=== PATIENT | male | born 1960 | race Caucasian/White ===

== ENCOUNTER 2017-02-06 19:30 | Outpatient (CLI) | payer OTHER ==
--- OUTSIDE RECORDS SUMMARY | 2017-02-07 09:00 | XMS | Clinical Summary ---
:1960 Author Organization [facility] Address [address] [place] [address] Phone Care Team Providers Name Role Phone Shagufta Richards Primary Care Provider tel Allergies Active Allergy Reactions Severity Noted Date Comments Penicillins High 07/16/2016 Sulfa (Sulfonamide Antibiotics) High 07/16/2016 Current Medications Prescription Sig. Disp. Refills Start Date End Date Status EFFIENT 10 mg tablet Take 1 tablet by 2016 Active mouth daily. aspirin (ECOTRIN) 81 MG Take 81 mg by mouth Active enteric coated tablet daily. pitavastatin (LIVALO) 1 Take 1 mg by mouth Active mg tablet daily. Active Problems Problem Noted Date Well adult exam 10/27/2016 Prostate cancer screening 10/27/2016 Chronic fatigue 10/27/2016 Coronary artery disease involving [place] coronary artery of [place] heart 10/27 without angina pectoris Hypotestosteronemia 10/27/2016 Obstructive sleep apnea 10/27/2016 Skin lesions 10/27/2016 Epidermal inclusion cyst 10/27/2016 Acute low back pain 07/16/2016 Presence of stent in artery 07/16/2016 Mixed hyperlipidemia 07/16/2016 Paresthesia of right foot 07/16/2016 Encounters Date Type Specialty Care Team Description 02/03/2017 Lab Lab Shagufta Richards Mixed hyperlipidemia;Chronic MD Claudia fatigue;Paresthesia of right foot;Coronary artery disease involving [place] coronary artery of [place] heart without angina pectoris;Prostate cancer screening;Hypotestosteronemia 02/03/2017 Office Visit Sports Shagufta Worrell Hypotestosteronemia (Primary MD Claudia Dx);Mixed hyperlipidemia;Prostate cancer screening;Chronic fatigue;Paresthesia of right foot;Coronary artery disease involving [place] coronary artery of [place] heart without angina pectoris;Dizziness 11/18/2016 Office Visit Sports Shagufta Worrell Well adult exam ( Primary Dx) MD Claduia from Last 3 Months Family History Medical History Relation Name Comments Heart disease Father Cancer Maternal Grandmother Cancer Mother Relation Name Status Comments Father Maternal Grandmother Mother Social History Tobacco Use Types Packs/Day Years Used Date Former Smoker Quit: 2003 Smokeless Tobacco: Current User Tobacco Cessation:Ready to Quit: No; Counseling Given: Yes Alcohol Use Drinks/Week oz/Week Comments Yes 2 Cans of beer 1.2 Sex Assigned at Date Recorded Not on file Last Filed Vital Signs Vital Sign Reading Time Taken Blood Pressure 110/72 02/03/2017 9:33 AM CDT Pulse 75 02/03/2017 9:33 AM CDT Temperature 37.1 C (98.7 F) 11/18/2016 3:02 PM CDT Respiratory Rate 16 02/03/2017 9:24 AM CDT Oxygen Saturation - - Inhaled Oxygen Concentration - - Weight 107 kg (235 lb) 02/03/2017 9:24 AM CDT Height 188 cm (6' 2") 02/03/2017 9:24 AM CDT Body Mass Index 30.17 02/03/2017 9:24 AM CDT Plan of Treatment Health Maintenance Due Date Last Done Comments COLONOSCOPY 2008 INFLUENZA VACCINE 12/14/2016 Results BREANNA SCREEN W IFA W REFLEX TO TITER (02/03/2017 10:09 AM) Component Value Ref Range BREANNA screen NEGATIVE NEGATIVE Comment: BREANNA IFA is a first line screen for detecting the presence of up to approximately 150 autoantibodies in various autoimmune diseases. A negative BREANNA IFA result suggests BREANNA-associated autoimmune diseases are not present at this time. Visit Physician FAQs for interpretation of all antibodies in the [place], prevalence, and association with diseases at http://education.New.net.Pocketbook/ faq/XDO013 Specimen Performing Laboratory [facility] Thyroperoxidase antibody (02/03/2017 10:07 AM) Component Value Ref Range Thyroperoxidase Ab <1 <9 IU/mL Specimen Performing Laboratory [facility] Microalbumin / creatinine urine ratio (02/03/2017 10:07 AM) Component Value Ref Range Creatinine, urine, random 135 20 - 370 mg/dL Microalbumin, urine 0.2 See Note: mg/dL Comment: Reference Range: Reference Range Not established Microalbumin/creatinine ratio 1 <30 mcg/mg creat Comment: The ADA defines abnormalities in albumin excretion as follows: Category Result (mcg/mg creatinine) Normal<30 Microalbuminuria 30-299 Clinical albuminuria > NL=323 The ADA recommends that at least two of three specimens collected within a 3-6 month period be abnormal before considering a patient to be within a diagnostic category. Specimen Performing Laboratory U[facility] Vitamin D 25 hydroxy level (02/03/2017 10:07 AM) Component Value Ref Range Vitamin D, 25-hydroxy 32 30 - 100 ng/mL Comment: Vitamin D Status 25-OH Vitamin D: Deficiency:<20 ng/mL Insufficiency: 20 - 29 ng/mL Optimal: > or=30 ng/mL For 25-OH Vitamin D testing on patients on D2-supplementation and patients for whom quantitation of D2 and D3 fractions is required, the QuestAssureD(TM) 25-OH VIT D, (D2,D3), LC/MS/MS is recommended: order code 21513 (patients >2yrs). For more information on this test, go to: http://education.CipherMax/faq/YKD977 (This link is being provided for informational/educational purposes only.) Specimen Performing Laboratory [facility] CBC with platelet and differential (02/03/2017 10:07 AM) Component Value Ref Range WBC 6.4 3.8 - 10.8 Thousand/uL RBC 5.46 4.20 - 5.80 Million/uL HGB 16.2 13.2 - 17.1 g/dL HCT 47.6 38.5 - 50.0 % MCV 87.2 80.0 - 100.0 fL MCH 29.7 27.0 - 33.0 pg MCHC 34.0 32.0 - 36.0 g/dL RDW 13.4 11.0 - 15.0 % Platelet count 241 140 - 400 Thousand/uL MPV 11.5 7.5 - 12.5 fL Neutrophils, absolute 4339 1500 - 7800 cells/uL Lymphocytes, absolute 1498 850 - 3900 cells/uL Monocytes, absolute 486 200 - 950 cells/uL Eosinophils, absolute 38 15 - 500 cells/uL Basophils, absolute 38 0 - 200 cells/uL Neutrophils 67.8 % Lymphocytes 23.4 % Monocytes 7.6 % Eosinophils 0.6 % Basophils + RC 0.6 % Specimen Performing Laboratory [facility] POC glucose (02/03/2017 10:07 AM) Component Value Ref Range POC glucose 89 65 - 100 Specimen Performing Laboratory Blood T3, free (02/03/2017 10:07 AM) Component Value Ref Range T3, free 3.3 2.3 - 4.2 pg/mL Specimen Performing Laboratory [facility] Thyroid stimulating hormone (02/03/2017 10:07 AM) Component Value Ref Range TSH 2.38 0.40 - 4.50 mIU/L Specimen Performing Laboratory [facility] T4 (02/03/2017 10:07 AM) Component Value Ref Range T4 6.6 4.5 - 12.0 mcg/dL Specimen Performing Laboratory [facility] Hemoglobin A1c (02/03/2017 10:07 AM) Component Value Ref Range Hemoglobin A1C 5.4 <5.7 % of total Hgb Comment: For the purpose of screening for the presence of diabetes: <5.7% Consistent with the absence of diabetes 5.7-6.4%Consistent with increased risk for diabetes (prediabetes) > or=6.5%Consistent with diabetes This assay result is consistent with a decreased risk of diabetes. Currently, no consensus exists regarding use of hemoglobin A1c for diagnosis of diabetes in children. According to [place] Diabetes Association (ADA) guidelines, hemoglobin A1c <7.0% represents optimal control in non- diabetic patients. Different metrics may apply to specific patient populations. Standards of Medical Care in Diabetes(ADA). Specimen Performing Laboratory [facility] Lipid panel (02/03/2017 10:07 AM) Component Value Ref Range Cholesterol, total 147 <200 mg/dL HDL cholesterol 37(L) >40 mg/dL Triglycerides 153(H) <150 mg/dL LDL cholesterol calculated 85 mg/dL (calc) Comment: Reference range: <100 Desirable range <100 mg/dL for patients with CHD or diabetes and <70 mg/dL for diabetic patients with known heart disease. LDL-C is now calculated using the Tj-Tellez calculation, which is a validated novel method providing better accuracy than the Friedewald equation in the estimation of LDL-C. Tj SS et al. AMADA. 2013;310(19): 0170-8246 (http://education.New.net.Pocketbook/faq/VEI191) Cholesterol/HDL ratio 4.0 <5.0 (calc) Non-HDL cholesterol 110 <130 mg/dL (calc) Comment: For patients with diabetes plus 1 major ASCVD risk factor, treating to a non-HDL-C goal of <100 mg/dL (LDL-C of <70 mg/dL) is considered a therapeutic option. Specimen Performing Laboratory [facility] Comprehensive metabolic panel (02/03/2017 10:07 AM) Component Value Ref Range Glucose 93 65 - 99 mg/dL Comment: Fasting reference interval BUN, whole blood 11 7 - 25 mg/dL Creatinine 0.98 0.70 - 1.33 mg/dL Comment: For patients >49 years of age, the reference limit for Creatinine is approximately 13% higher for people identified as -[place]. EGFR Non-Afr. [place] 85 > OR=60 mL/min/1.73m2 EGFR 98 > OR=60 mL/min/1.73m2 BUN/creatinine ratio NOT APPLICABLE 6 - 22 (calc) Sodium 142 135 - 146 mmol/L Potassium 4.5 3.5 - 5.3 mmol/L Chloride 107 98 - 110 mmol/L CO2 20 20 - 31 mmol/L Calcium 9.6 8.6 - 10.3 mg/dL Protein 7.2 6.1 - 8.1 g/dL Albumin, S 4.5 3.6 - 5.1 g/dL Globulin, total 2.7 1.9 - 3.7 g/dL (calc) Albumin/globulin ratio 1.7 1.0 - 2.5 (calc) Total bilirubin 0.8 0.2 - 1.2 mg/dL Alkaline phosphatase 60 40 - 115 U/L AST 21 10 - 35 U/L ALT 19 9 - 46 U/L Specimen Performing Laboratory [facility] from Last 3 Months Insurance Payer Benefit Plan / Group Subscriber ID Type Phone Address [employer] PPO [id number] PPO Home: [address] [phone] [place], [place] [id number]
--- OUTSIDE RECORDS SUMMARY | 2017-02-07 09:00 | XMS | Clinical Summary ---
:1960 Author Organization [facility] Address [address] [place] [address] Phone Care Team Providers Name Role Phone , Primary Care Provider Unavailable Allergies Active Allergy Reactions Severity Noted Date Comments Penicillins 09/14/2015 Sulfa (Sulfonamide Antibiotics) 09/14/2015 Current Medications Prescription Sig. Disp. Refills Start Date End Date Status prasugrel (EFFIENT) 10 mg Take 10 mg by Active Tab tablet mouth daily. aspirin 81 MG EC tablet Take 162 mg by Active mouth daily . omega-3 fatty acids-fish Take 1 g by mouth Active oil 340-1,000 mg Cap per daily. capsule atorvastatin (LIPITOR) 20 Take 20 mg by Active MG tablet mouth nightly. Active Problems Problem Noted Date Palpitations 09/15/2015 Near syncope 09/14/2015 Social History Tobacco Use Types Packs/Day Years Used Date Former Smoker Alcohol Use Drinks/Week oz/Week Comments No seldom Sex Assigned at Date Recorded Not on file Last Filed Vital Signs Vital Sign Reading Time Taken Blood Pressure 115/82 09/16/2015 1:17 PM CDT Pulse 66 09/16/2015 1:17 PM CDT Temperature 36.9 C (98.5 F) 09/16/2015 1:17 PM CDT Respiratory Rate 18 09/16/2015 1:17 PM CDT Oxygen Saturation 97% 09/16/2015 1:17 PM CDT Inhaled Oxygen Concentration - - Weight 102.8 kg (226 lb 11.2 oz) 09/14/2015 8:29 PM CDT Height 185.4 cm (6' 1") 09/14/2015 8:29 PM CDT Body Mass Index 29.91 09/14/2015 8:29 PM CDT Plan of Treatment Not on file Results Not on filefrom Last 3 Months
== END 2017-02-06 19:31 | disposition home or self-care (01) ==
LOC: SLEEPLAB 19:30
PROVIDERS: ATTEND Internal Medicine
DX: G47.33 Obstructive sleep apnea (adult) (pediatric) (principal); G47.10 Hypersomnia, unspecified; R06.83 Snoring; E66.9 Obesity, unspecified
CPT/HCPCS: 95811